=== PATIENT | female | born 1955 | race Caucasian/White ===

== ENCOUNTER 2022-04-08 08:00 | Outpatient (RCR) | payer BC, SELFPAY ==
--- NOTE | 2022-03-08 15:24 | HP.OTEVAL ---
Patient's Visit Information DURAN MCCALL is a 66 year old F, referred to Occupational Therapy by LIVIER HAYDEN, with a diagnosis of Bilateral LE lymphedema. Date of Evaluation: 03/08/22 Occupational Therapist: Junie Cortés, OTR/Martina, CHT - Subjective This 66 year old female was see for OT eval with dx of Lymphedema- states she was dx several years- just recently moved from [place] and suffered a flair of cellulitis 01/05/22- pt states she was there for about a week- pt state she has compression socks- she is unsure how old they are- [employer] is the DME supplier- [employer] is manufacture- pt states she still wears them but can tell they are older and need replaced. pt works for [employer] 5 hours a day 5 days a week-. pt states she would like to get new compression socks- and learn what she can do for herself to mtg her lymphedema. - Lymphedema (Circumferential Measure) Mid-foot: right 28cm left 28.5cm Ankle: right 35c, left 36cm Lower calf: right 34cm left 34cm Largest calf: right 55cm left 54cm Below knee: right 46cm left 46 cm Lower Exremity Comments: pt demo with LE ankle and foot edema - Lower Limb Functional Index Lower Extremity Functional Score: 31 - Goals Demonstrate a 20% reduction in edema by d/c: Yes Demonstrate adequate knowledge of self-massage by 2nd week: Yes Demonstrate adequate knowledge skin care/prec by 2nd week: Yes Demonstrate adequate knowledge therapeutic exercises by d/c: Yes Select approp compression garment w/donning/care/wear by d/c: Yes Voice need to replace compression garment every 4-6mo by dc: Yes - Rehabilitation General Assessment: pt demo with bilateral LE Lymphedema with recent cellulitis on left LE- pt demo need for skilled OT services 3-4 visits to ensure pt gets new compression garment and initiation of her HEP to mtg. LE lymphedema. Today therapist initiated ed. of self manual lymph massage and exercises that simulate the lymphatic system- pt was given handouts pt demo understanding and agree to POC. Rehabilitation Potential: Fair - Anticipated Interventions Education re assistive Equipment, Education re Diagnosis, Manual Lymph Drainage, Education re Life-long lymphedema Management, Education re Skin Care and Precautions, Education re Self Massage Techniques, Education re Correct Donning Tech,Care&Wearing Sched Comp Garments, Home Program - Visit Plan TEXT: Thank you for the opportunity to evaluate your patient. For Medicare and Medicare HMO plans, please review the plan of care and approve it. It will need to be FAXED BACK to us at [phone] for Medicare purposes. Please let me know if there are questions or concerns regarding this plan of care. Physician Signature: Date:
--- NOTE | 2022-04-08 10:17 | HP.OTDCSUM ---
It has been my pleasure to treat DURAN MCCALL under orders from LIVIER HAYDEN, for the diagnosis of Bilateral LE lymphedema for a total of 2 visit(s). Please see the following information for a summary of their discharge status. % Improvement: 75 Objective/Function: right foot 25cm initial 28cm left 26cm initial 28.5. right ankle 32cm initial 35cm left 30 initial 36cm. right lower calf 29cm initial 34cm left 29cm initial 34cm. right calf 50cm initial 55cm left 48cm initial 54cm. right below knee 46cm initial 46cm left 46cm initial 46cm. pt demo a sig. reduction in her LE edema. pt has met OT goals. pt reports she understands her HEP and mtg of lymphedema. pt agrees with D/C Patient Goals: Learn how to Manage Lymphedema, Learn how to Apply Compression Stockings Demonstrate a 20% reduction in edema by d/c: Yes Goal Progress: Goal Met Demonstrate adequate knowledge of self-massage by 2nd week: Yes Goal Progress: Goal Met Demonstrate adequate knowledge skin care/prec by 2nd week: Yes Demonstrate adequate knowledge therapeutic exercises by d/c: Yes Goal Progress: Goal Met Select approp compression garment w/donning/care/wear by d/c: Yes Goal Progress: Goal Met Voice need to replace compression garment every 4-6mo by dc: Yes Goal Progress: Goal Met Plan: pt will continue to perform her HEP of self lymph mtg exercies. use of her compression socks and to increase her activity level by walking to the grocery store close to her home. Discharge Comments: pt has met OT goals and demo understanding of how to mtg her lymphedema-. pt is d/c with home ex. and ed. on life long lymphedema mtg. If there are questions or concerns regarding this patient's occupational therapy, please fell free to call me at [phone]. Thank you for the referral of this patient. Sincerely, Junie Cortés, OTR/L, CHT
== END 2022-04-08 19:00 | disposition home or self-care (01) ==
LOC: OT 08:00
DX: I50.30 Unspecified diastolic (congestive) heart failure (principal); E11.9 Type 2 diabetes mellitus without complications; Z79.4 Long term (current) use of insulin
CPT/HCPCS: 97166; 97530